=== PATIENT | male | born 1990 | race Caucasian/White ===

== ENCOUNTER 2017-01-30 22:08 | Emergency (ER) | payer MEDICAID ==
[~2017-01-30] VITALS: Ht 167.6 cm; Wt 64.0 kg
[2017-01-30 22:25] VITALS: BP 151/86
--- NOTE | 2017-01-30 22:36 | NUR ---
PT TAKEN TO BED 8
--- NOTE | 2017-01-30 22:40 | NUR ---
26 Y/O M W/C/O FATIGUED X1 MONTH; C/O WEAKNESS AND DIZZINESS; HEADACHE ON AND OFF. PT DENIES ANY PAIN PRESENT AT THE MOMENT. ER MADE AWARE.
--- NOTE | 2017-01-30 22:45 | NUR ---
Dr. Booth evaluating patient at bedside.
[2017-01-30 23:56] LABS: HEMATOCRIT 47.6 % (36-52); HEMOGLOBIN 16.2 g/dL (12.0-18.0); MEAN CORPUSCULAR HEMOGLOBIN 30 pg (27-31); MEAN CORPUSCULAR HGB CONC 34 g/dL (33-37); MEAN CORPUSCULAR VOLUME 88 fL (80-94); PLATELET COUNT (AUTO) 228 K/uL (140-450); RED BLOOD CELL COUNT(AUTO) 5.42 MIL/uL (4.20-6.10); WHITE BLOOD COUNT (AUTO) 8.3 K/uL (4.8-10.8)
[2017-01-31 00:06] LABS: ANION GAP 10.4 (8-16); CARBON DIOXIDE 29.1 mmol/L (21-32); POTASSIUM 3.5 mmol/L (3.5-5.1)
--- NOTE | 2017-01-31 00:10 | NUR ---
PT AWATING FOR RESULTS, NO S/S OF DISTRESS NOTED AT THE MOMENT.
[2017-01-31 00:17] LABS: EOSINOPHILS % (MANUAL) 1 % (0-4); LYMPHOCYTES % (MANUAL) 19 % (20-46); MONOCYTES % (MANUAL) 6 % (5-12)
[2017-01-31 00:20] LABS: ALBUMIN 4.7 g/dL (3.4-5.0); THYROID STIMULATING HORMONE 6.02 uIU/mL (0.34-3.74); TOTAL BILIRUBIN 0.5 mg/dL (0.0-1.0)
[2017-01-31 01:22] VITALS: BP 113/70
--- NOTE | 2017-01-31 01:22 | NUR ---
Patient discharged with v/s stable. Written and verbal after care instructions given and explained. Patient alert, oriented and verbalized understanding of instructions. Ambulatory with steady gait. All questions addressed prior to discharge. ID band removed. Patient advised to follow up with PMD [facility], OR RETURN TO ER IF CONDITION WORSENS. Rx of SYNTHROID given. Patient educated on indication of medication including possible reaction and side effects. Opportunity to ask questions provided and answered.
== END 2017-01-31 01:22 | disposition home or self-care (01) ==
LOC: MED 22:08
DX: E03.8 Other specified hypothyroidism (principal); R53.1 Weakness; R53.83 Other fatigue; R63.1 Polydipsia
CPT/HCPCS: 36415; 80053; 84439; 84443; 85025; 93005; 99285

== ENCOUNTER 2017-11-05 23:36 | Emergency (ER) | payer MEDICAID ==
[~2017-11-05] VITALS: Ht 167.6 cm; Wt 65.8 kg
[2017-11-05 23:42] VITALS: BP 157/94
--- NOTE | 2017-11-05 23:47 | NUR ---
Pt ambulated to ER bed 07
--- NOTE | 2017-11-06 | NUR ---
26/M CAME IN ED, C/O 05/24 BURNING GENITAL DISCOMFORT WITH URINATION, NONRADIATING, X1 WEEK. PT REPORTS REDNESS ON GENITAL AREA. PT REPORTS HX HYPOTHRYROID, RX LEVOTHYROXINE. PT DENIES CP, SOB, COUGH, N/V/D; SKIN IS INTACT, PINK/WARM/DRY; AAOX4, PERRL, WITH EVEN AND STEADY GAIT; LUNGS CLEAR BL, BREATHING UNLABORED; HR EVEN AND REGULAR, BL PERIPHERAL PULSES PRESENT; BS ACTIVE X4, NO TENDERNESS TO PALPATION; PATIENT POSITIONED FOR COMFORT; HOB ELEVATED; BEDRAILS UP X2; BED DOWN.
--- NOTE | 2017-11-06 00:10 | NUR ---
DR GONSALEZ AT BEDSIDE TO EVALUATE PT
[2017-11-06 00:20] VITALS: BP 129/86
--- NOTE | 2017-11-06 00:20 | NUR ---
Patient discharged with v/s stable. Written and verbal after care instructions given and explained. Patient alert, oriented and verbalized understanding of instructions. Ambulatory with steady gait. All questions addressed prior to discharge. ID band removed. Patient advised to follow up with PMD. Rx of MOTRIN 600MG given. Patient educated on indication of medication including possible reaction and side effects. Opportunity to ask questions provided and answered.
[2017-11-09 06:29] LABS: CHLAMYDIA TRACHOMATIS AMP DNA Negative (Negative)
== END 2017-11-06 00:20 | disposition home or self-care (01) ==
LOC: MED 23:36
DX: R30.0 Dysuria (principal); E03.9 Hypothyroidism, unspecified
CPT/HCPCS: 36415; 81002; 87491; 99283

== ENCOUNTER 2019-04-23 18:50 | Emergency (ER) | payer MEDICAID ==
[~2019-04-23] VITALS: Ht 167.6 cm; Wt 70.3 kg
[2019-04-23 19:00] VITALS: BP 133/79
--- NOTE | 2019-04-23 19:00 | NUR ---
TO BED # 08 AMBULATORY
--- NOTE | 2019-04-23 19:25 | NUR ---
28 Y/O MALE PRESENTS TO ED, C/O RIGHT HAND NUMBNESS. PT STATES NUMBNESS STARTED AROUND 1700 AT WORK. DURING ASSESSMENT, NO NUMBNESS NOTED. PT HAS BILAT STRONG PC ANALYST STRENGTH, NO SLURRED SPEECH OR FACIAL DROOP. PT STATES HAVING HEADACHE 7/10. DENIES TAKING ANY MEDICATIONS FOR PAIN. PT DENIES ANY DRUG/SUBSTANCE USE. DENIES N/V/D. PT PLACED ON MONITOR. VSS. ERMD AWARE. WILL CONTINUE TO MONITOR.
[2019-04-23] MEDS ORDERED: IBUPROFEN 600 MG TAB PO ONE (20:35)
[2019-04-23] MEDS ORDERED: ONDANSETRON 4 MG ODT PO ONE (20:35)
--- NOTE | 2019-04-23 20:50 | NUR ---
BLOOD DRAWN, TAKEN TO LAB
[2019-04-23 21:10] LABS: BASOPHILS % (AUTO) 0.2 % (0.0-2.0); HEMATOCRIT 50.1 % (36-52); HEMOGLOBIN 16.6 g/dL (12.0-18.0); LYMPHOCYTES # (AUTO) 0.9 K/uL (2.0-11.5); MEAN CORPUSCULAR HEMOGLOBIN 30 pg (27-31); MEAN CORPUSCULAR HGB CONC 33 g/dL (33-37); MEAN CORPUSCULAR VOLUME 90.2 fL (80-94); MONOCYTES # (AUTO) 1.1 K/uL (0.8-1.0); NEUTROPHILS # (AUTO) 13.9 K/uL (1.8-7.7); NEUTROPHILS % (AUTO) 87.2 % (42.2-75.2); PLATELET COUNT (AUTO) 273 K/uL (140-450); RED BLOOD CELL COUNT(AUTO) 5.55 MIL/uL (4.20-6.10); RED CELL DISTRIBUTION WIDTH 13.1 % (11.6-13.7)
[2019-04-23 21:29] LABS: ANION GAP 13.6 (8-16); CARBON DIOXIDE 27.3 mmol/L (21-32); CREATININE 0.8 mg/dL (0.7-1.3); POTASSIUM 3.9 mmol/L (3.5-5.1)
[2019-04-23 21:34] VITALS: BP 118/76
[2019-04-23 21:34] LABS: LYMPHOCYTES % (AUTO) 5.6 % (20.5-51.1); WHITE BLOOD COUNT (AUTO) 15.9 K/uL (4.8-10.8)
--- NOTE | 2019-04-23 21:34 | NUR ---
PT DISCHARGED WITH PAPERWORK. NO MEDICATION RX PROVIDED. EDUCATED PT REGARDING D/C DIAGNOSIS AND INSTRUCTIONS. PT VERBALIZED UNDERSTANDING OF TEACHING. TOLD PT TO FOLLOW UP WITH PCP AND WHEN TO RETURN TO ED. PT AT STABLE CONDITION. ALL QUESTIONS ANSWERED.
[2019-04-23 21:35] LABS: ALBUMIN 4.9 g/dL (3.4-5.0); TOTAL BILIRUBIN 0.5 mg/dL (0.0-1.0)
== END 2019-04-23 21:34 | disposition home or self-care (01) ==
LOC: MED 18:50
DX: T59.91XA Toxic effect of unspecified gases, fumes and vapors, accidental (unintentional), initial encounter (principal); R42 Dizziness and giddiness; R51 Headache; F41.9 Anxiety disorder, unspecified; E03.9 Hypothyroidism, unspecified; Y92.89 Other specified places as the place of occurrence of the external cause
CPT/HCPCS: 36415; 80053; 85025; 99283; Q0162

== ENCOUNTER 2020-01-22 11:25 | Emergency (ER) | payer MEDICAID ==
[~2020-01-22] VITALS: Ht 165.1 cm; Wt 65.8 kg
[2020-01-22 11:36] VITALS: BP 139/91
--- NOTE | 2020-01-22 12:46 | NUR ---
AMB TO [facility]
[2020-01-22 13:29] VITALS: BP 139/91
--- NOTE | 2020-01-22 13:29 | NUR ---
Patient discharged with v/s stable. Written and verbal after care instructions given and explained. Patient alert, oriented and verbalized understanding of instructions. Ambulatory with steady gait. All questions addressed prior to discharge. ID band removed. Patient advised to follow up with PMD. Rx of KEFLEX, BACITRACIN given. Patient educated on indication of medication including possible reaction and side effects. Opportunity to ask questions provided and answered.
== END 2020-01-22 13:29 | disposition home or self-care (01) ==
LOC: MED 11:25
DX: S40.811A Abrasion of right upper arm, initial encounter (principal); E03.9 Hypothyroidism, unspecified; V29.9XXA Motorcycle rider (driver) (passenger) injured in unspecified traffic accident, initial encounter; Y93.89 Activity, other specified; Y92.89 Other specified places as the place of occurrence of the external cause; Y99.8 Other external cause status
CPT/HCPCS: 99283

== ENCOUNTER 2020-10-27 09:57 | Emergency (ER) | payer MEDICAID ==
[~2020-10-27] VITALS: Ht 167.6 cm; Wt 68.0 kg
[2020-10-27 09:59] VITALS: BP 127/89
--- NOTE | 2020-10-27 11:00 | NUR ---
PATIENT AMBULATED TO ER BED 03 WITH STEADY GAIT
--- NOTE | 2020-10-27 11:10 | NUR ---
DR ROSARIO AT BEDSIDE EVALUATING PT
--- NOTE | 2020-10-27 11:15 | NUR ---
29 Y/O MALE C/O LEFT UPPER ARM, BACK OF NECK & LEFT UPPER BACK PAIN X 2 WEEKS. DENIES TRAUMA/INJRY. PT DENIES PAIN AT THIS TIME. PT STATES THAT THE PAIN IS INTERMITTENT. PT TOOK ADVIL WHICH HELPS WITH THE PAIN. PT A/O X4 WITH EVEN AND UNLABORED RESPIRATIONS. PMH: DENIES NKDA
[2020-10-27] MEDS ORDERED: NAPR-1704 PO (11:40)
[2020-10-27 11:53] VITALS: BP 127/89
--- NOTE | 2020-10-27 11:54 | NUR ---
Patient discharged with v/s stable. Written and verbal after care instructions ABOUT ACUTE BACK PAIN given and explained. Patient alert, oriented and verbalized understanding of instructions. Ambulatory with steady gait. All questions addressed prior to discharge. ID band removed. Patient advised to follow up with PMD. Rx of NAPROXEN given. Patient educated on indication of medication including possible reaction and side effects. Opportunity to ask questions provided and answered.
== END 2020-10-27 11:50 | disposition home or self-care (01) ==
LOC: MED 09:57
DX: M62.830 Muscle spasm of back (principal); M54.2 Cervicalgia; E03.9 Hypothyroidism, unspecified
CPT/HCPCS: 99282

== ENCOUNTER 2022-04-25 21:56 | Emergency (ER) | payer MEDICAID ==
[~2022-04-25] VITALS: Ht 167.6 cm; Wt 74.8 kg
[~2022-04-25 21:56] MED LIST: NAPR-1704 PO
[2022-04-25 22:03] VITALS: BP 134/83
--- NOTE | 2022-04-25 22:06 | NUR ---
TO LOBBY A/W BED AMBULATORY
--- NOTE | 2022-04-25 22:37 | NUR ---
PATIENT LEFT WITHOUT BEING SEEN BY DR. DUCKWORTH. NO FURTHER CARE PROVIDED FOR PATIENT.
[2022-04-25] MEDS ORDERED: KETOROLAC 30 MG/ML VIAL IM ONE (22:45)
== END 2022-04-25 22:37 | disposition left against medical advice (07) ==
LOC: MED 21:56
DX: K08.89 Other specified disorders of teeth and supporting structures (principal); Z53.21 Procedure and treatment not carried out due to patient leaving prior to being seen by health care provider